=== PATIENT | male | born 1990 | race Caucasian/White ===

== ENCOUNTER 2017-02-26 15:23 | Emergency (ER) | payer SELFPAY ==
[~2017-02-26] VITALS: Ht 172.7 cm; Wt 72.7 kg
[2017-02-26 15:46] VITALS: TEMP 98.2
[2017-02-26 16:30] LABS: BASO # 0.1 (0.0-0.2); BASO % 0.6 % (0.0-2.0); EOS # 0.1 (0.0-0.7); EOS % 0.6 % (0-4.0); GRAN # 5.7 (1.4-6.5); GRAN % 69.7 % (42.2-75.2); HEMATOCRIT 50.5 % (42.0-52.0); HEMOGLOBIN 17.6 g/dl (13.5-18.0); LYMPH # 1.8 (1.2-3.4); LYMPH % 22.3 % (20.0-51.0); MEAN CELL VOLUME 92 fl (80.0-100.0); MEAN CORPUSCULAR HEMOGLOBIN 32 pg (27.0-31.0); MEAN CORPUSCULAR HGB CONC 35 g/dl (33.0-37.0); MEAN PLATELET VOLUME 9.5 fl (7.4-10.4); MONO # 0.6 (0.1-0.6); MONO % 6.7 % (1.7-9.3); PLATELET COUNT 221 K/mm3 (130-400); RED BLOOD COUNT 5.48 M/mm3 (4.20-5.60); REDCELL DISTRIBUTION WIDTH-CV 12.2 % (11.5-14.5)
[2017-02-26 16:52] LABS: ALBUMIN 5.3 gm/dL (3.5-5.0); CALCIUM 10.1 mg/dL (8.4-10.2); CREATININE, serum 1.12 mg/dL (0.66-1.25); POTASSIUM 4.2 mmol/L (3.4-5.0); TOTAL PROTEIN 8.9 gm/dL (6.4-8.2)
[2017-02-26] MEDS ORDERED: ULTRAM 50MG TAB50 MG PO (17:49)
[2017-02-26 18:00] VITALS: BP 153/100; PULSE 76
== END 2017-02-26 18:00 | disposition home or self-care (01) ==
LOC: COL.ER 15:23
PROVIDERS: Emergency Medicine
DX: R10.11 Right upper quadrant pain (principal)

== ENCOUNTER 2020-12-26 12:28 | Emergency (ER) | payer SELFPAY ==
[~2020-12-26] VITALS: Ht 172.7 cm; Wt 72.7 kg
[~2020-12-26 12:28] MED LIST: ULTRAM 50MG TAB50 MG PO
[2020-12-26 13:50] VITALS: TEMP 98
[2020-12-26 15:20] VITALS: BP 120/80; PULSE 80
== END 2020-12-26 15:24 | disposition home or self-care (01) ==
LOC: COL.ER 12:28
DX: M79.651 Pain in right thigh (principal)

== ENCOUNTER → 2021-04-08 | Outpatient (CLI) | payer BC | LOC: COL.RAD 11:33 | DX: N50.82 Scrotal pain (principal); I86.1 Scrotal varices ==